=== PATIENT | male | born 1955 | race Caucasian/White ===

== ENCOUNTER 2021-05-06 07:39 | Inpatient (IN) | payer MEDICARE ==
[~2021-05-06] VITALS: Ht 152.4 cm; Wt 41.5 kg
[2021-05-06 08:37] LABS: BASOPHIL 0.3 % (0-2); EOSINOPHIL 0 % (0-7); HCT 40.6 % (42.0-52.0); HGB 14.3 g/dl (13.2-18.0); LYMPHOCYTE 2.6 % (15-48); MCH 35.3 pg (25.0-31.0); MCHC 35.2 g/dL (32.0-36.0); MCV 100.2 fL (78.0-100.0); MONOCYTE 6.4 % (0-12); MPV 9.7 fL (6.0-9.5); NRBC 0; PLT 389 K/uL (150-400); RBC 4.05 M/uL (4.70-6.00); RDW 11.9 % (11.5-14.0); WBC 23.5 K/uL (4.0-10.5)
[2021-05-06 08:45] LABS: NEUTROPHIL 90.1 % (41-80)
[2021-05-06 08:56] LABS: ALBUMIN 2.6 g/dL (3.4-5.0); BILIRUBIN - TOTAL 0.8 mg/dL (0.2-1.0); BUN/CREAT RATIO (CALC) 20.3 RATIO; CREATININE 0.69 mg/dL (0.67-1.17); GLOBULIN (CALCULATION) 3.9 g/dL; POTASSIUM 4.7 mmol/L (3.5-5.1); TOTAL PROTEIN 6.5 g/dL (6.4-8.2)
[2021-05-06 09:07] LABS: CKMB 4.5 ng/mL (0.0-3.6)
[2021-05-06 09:28] LABS: BILIRUBIN NEGATIVE (NEGATIVE); BLOOD 1+ Ery/uL (NEGATIVE); CLARITY CLEAR (CLEAR); COLOR YELLOW (YELLOW); GLUCOSE (U) NORMAL (NORMAL); LEUKOCYTES 2+ Leu/uL (NEGATIVE); NITRITE POSITIVE (NEGATIVE); PROTEIN 2+ mg/dL (NEGATIVE); SPECIFIC GRAVITY <=1.005 (1.001-1.030); pH >=9.0 (5.0-9.0)
[2021-05-06 09:39] LABS: BACTERIA 4+; URINARY WBC 20-50
[2021-05-06 09:40] LABS: CALCIUM OXALATE CRYSTALS MODERATE; MUCOUS MODERATE; TRIPLE PHOSPHATE CRYSTALS MODERATE
[2021-05-06] MEDS ORDERED: VENTOLIN HFA IN18 GM INH (10:25)
[2021-05-06] MEDS ORDERED: ADVAIR 250-501 EACH INH (10:25)
[2021-05-06] MEDS ORDERED: PROZAC20 MG PO (10:26)
[2021-05-06] MEDS ORDERED: ATARAX25 MG PO (10:26)
[2021-05-06] MEDS ORDERED: DUONEB 2.5-0.5M1 AMP INH (10:27)
[2021-05-06] MEDS ORDERED: IMODIUM2 MG PO (10:28)
[2021-05-06] MEDS ORDERED: GUAIFENESI100 MG/5 M PO (10:29)
[2021-05-06] MEDS ORDERED: SENNA-S 8.6-501 EACH PO (10:29)
[2021-05-06] MEDS ORDERED: DIAZEPAM 5MG TAB5 MG PO ×2 (10:30)
[2021-05-06] MEDS ORDERED: ZOFRAN4 M1 PO (10:31)
[2021-05-06] MEDS ORDERED: DEXAMETHASONE 2M2 MG PO (10:31)
[2021-05-07 05:58] LABS: BASOPHIL 0.3 % (0-2); EOSINOPHIL 0.4 % (0-7); HCT 32.9 % (42.0-52.0); HGB 11.4 g/dl (13.2-18.0); LYMPHOCYTE 8.3 % (15-48); MCH 35.1 pg (25.0-31.0); MCHC 34.7 g/dL (32.0-36.0); MCV 101.2 fL (78.0-100.0); MONOCYTE 9.9 % (0-12); MPV 9.8 fL (6.0-9.5); NEUTROPHIL 80.5 % (41-80); NRBC 0; PLT 295 K/uL (150-400); RBC 3.25 M/uL (4.70-6.00); RDW 12.1 % (11.5-14.0); WBC 12.6 K/uL (4.0-10.5)
[2021-05-07 06:16] LABS: IRON % SATURATION 10.6 %SAT (20-50)
[2021-05-07 06:51] LABS: BUN/CREAT RATIO (CALC) 23.9 RATIO; CREATININE 0.67 mg/dL (0.67-1.17); FOLIC ACID (SERUM) 17.3 ng/mL (8.6-58.9); MAGNESIUM 1.7 mg/dL (1.8-2.4); POTASSIUM 3.6 mmol/L (3.5-5.1)
[2021-05-07 14:54] LABS: BILIRUBIN NEGATIVE (NEGATIVE); BLOOD 3+ Ery/uL (NEGATIVE); CLARITY CLOUDY (CLEAR); COLOR YELLOW (YELLOW); GLUCOSE (U) NORMAL (NORMAL); LEUKOCYTES 2+ Leu/uL (NEGATIVE); NITRITE POSITIVE (NEGATIVE); PROTEIN 2+ mg/dL (NEGATIVE); UROBILINOGEN 0.2 mg/dL (0.2-1.0)
[2021-05-07 15:03] LABS: URINARY RBC TNTC; URINARY WBC TNTC
[2021-05-07 15:04] LABS: AMORPHOUS PHOSPHATE CRYSTALS MODERATE; BACTERIA 3+; TRIPLE PHOSPHATE CRYSTALS LARGE
[2021-05-08 10:48] LABS: BASOPHIL 0.1 % (0-2); EOSINOPHIL 0 % (0-7); HGB 9.7 g/dl (13.2-18.0); LYMPHOCYTE 3.1 % (15-48); MCH 34.5 pg (25.0-31.0); MCHC 34.6 g/dL (32.0-36.0); MCV 99.6 fL (78.0-100.0); MONOCYTE 5.4 % (0-12); MPV 9.8 fL (6.0-9.5); NEUTROPHIL 90.6 % (41-80); NRBC 0; PLT 267 K/uL (150-400); RBC 2.81 M/uL (4.70-6.00); RDW 11.9 % (11.5-14.0); WBC 10.7 K/uL (4.0-10.5)
[2021-05-08 11:04] LABS: CREATININE 0.6 mg/dL (0.67-1.17); MAGNESIUM 2.1 mg/dL (1.8-2.4); POTASSIUM 3.9 mmol/L (3.5-5.1)
[2021-05-09 05:21] LABS: BASOPHIL 0.1 % (0-2); EOSINOPHIL 0 % (0-7); HCT 25.2 % (42.0-52.0); HGB 8.8 g/dl (13.2-18.0); LYMPHOCYTE 4.1 % (15-48); MCH 35.3 pg (25.0-31.0); MCHC 34.9 g/dL (32.0-36.0); MCV 101.2 fL (78.0-100.0); MONOCYTE 6.5 % (0-12); MPV 10.2 fL (6.0-9.5); NEUTROPHIL 88.7 % (41-80); NRBC 0; PLT 253 K/uL (150-400); RBC 2.49 M/uL (4.70-6.00); RDW 11.9 % (11.5-14.0); WBC 8.9 K/uL (4.0-10.5)
[2021-05-09 05:31] LABS: BUN/CREAT RATIO (CALC) 28.3 RATIO; CREATININE 0.53 mg/dL (0.67-1.17); MAGNESIUM 1.7 mg/dL (1.8-2.4); POTASSIUM 4.6 mmol/L (3.5-5.1)
[2021-05-11] MEDS ORDERED: LEVAQUIN750 MG PO (16:12)
== END 2021-05-11 16:56 | disposition hospice, home (50) | DRG 698 ==
LOC: FER 07:39 → FMS 09:52
PROVIDERS: Emergency Medicine; ADMIT Internal Medicine
DX: T83.511A Infection and inflammatory reaction due to indwelling urethral catheter, initial encounter (principal); A41.9 Sepsis, unspecified organism; E43 Unspecified severe protein-calorie malnutrition; G93.41 Metabolic encephalopathy; N30.00 Acute cystitis without hematuria; J96.10 Chronic respiratory failure, unspecified whether with hypoxia or hypercapnia; F20.0 Paranoid schizophrenia; Z68.1 Body mass index [BMI] 19.9 or less, adult; Z20.822 Contact with and (suspected) exposure to COVID-19; J44.9 Chronic obstructive pulmonary disease, unspecified; Z51.5 Encounter for palliative care; I10 Essential (primary) hypertension; F41.9 Anxiety disorder, unspecified; F10.10 Alcohol abuse, uncomplicated; F17.210 Nicotine dependence, cigarettes, uncomplicated; Z99.81 Dependence on supplemental oxygen; Z88.5 Allergy status to narcotic agent; Z79.899 Other long term (current) drug therapy
CPT/HCPCS: 36415; 36600; 71045; 80048; 80053; 81001; 82553; 82607; 82746; 82803; 83540; 83550; 83605; 83735; 84145; 84484; 85025; 87040; 87076; 87088; 87186; 93005; 94010; 94640; 94667; 94668; 94760; 94762; G0480; J0696; J1650; J1956; J2543; J2916; J3475; J7030; J7120; J8540; U0002